=== PATIENT | female | born 1995 | race Caucasian/White ===

== ENCOUNTER 2016-11-30 20:21 | Emergency (ER) | payer OTHER ==
[~2016-11-30] VITALS: Ht 160 cm; Wt 92.2 kg
[2016-11-30 20:24] VITALS: BP 127/87
== END 2016-11-30 21:24 | disposition home or self-care (01) ==
LOC: ED 21:18
DX: L03.011 Cellulitis of right finger (principal)
CPT/HCPCS: 99283

== ENCOUNTER 2019-03-26 01:25 | Emergency (ER) | payer MEDICAID, OTHER ==
[~2019-03-26] VITALS: Ht 157.5 cm; Wt 83.4 kg
[2019-03-26 01:28] VITALS: BP 153/97
--- NOTE | 2019-03-26 03:05 | NUR ---
CALLED FOR PIT PROCESS, NO ANSWER AT THIS TIME.
--- NOTE | 2019-03-26 03:25 | NUR ---
NO ANSWER, LOBBY CHECKED
== END 2019-03-26 04:05 | disposition left against medical advice (07) ==
LOC: ED 03:54
DX: R05 Cough (principal); R09.81 Nasal congestion; Z53.21 Procedure and treatment not carried out due to patient leaving prior to being seen by health care provider